=== PATIENT | male | born 1995 | race Caucasian/White ===

== ENCOUNTER 2017-01-29 18:01 | Emergency (ER) | payer OTHER ==
[2017-01-29 18:16] VITALS: BP 104/56
--- NOTE | 2017-01-29 18:22 | EDM.PDOC ---
ED HPI GENERAL MEDICAL PROBLEM - General Stated Complaint: LACERATION HEAD
--- NOTE | 2017-01-29 18:31 | EDM.PDOC ---
ED HPI Skin/Rash - General Chief Complaint: Laceration Stated Complaint: LACERATION HEAD Time Seen by Provider: 01/29/17 18:20 Source: Reports: Patient History Limitations: Reports: No limitations - History of Present Illness INITIAL COMMENTS - FREE TEXT/NARRATIVE: HISTORY AND PHYSICAL: History of present illness: [] 21-year-old male with no past medical history now presents emergency department with a scalp laceration. Patient was working stood up a board was over his head in his scalp. Laceration a small amount of bleeding tetanus not up -to-date no loss of consciousness patient was not days no headache or neck pain otherwise asymptomatic Review of systems: As per history of present illness and below otherwise all systems reviewed and negative. Past medical history: As per history of present illness and as reviewed below otherwise noncontributory. Surgical history: As per history of present illness and as reviewed below otherwise noncontributory. Social history: No reported history of drug or alcohol abuse. Family history: As per history of present illness and as reviewed below otherwise noncontributory. Physical exam: 2.7 cm apical scalp laceration frontoparietal area midline transverse orientation gross contamination no avulsion no bony tenderness or crepitus patient smiling and comfortable asymptomatic nontender C-spine with normal painless range of motion and fully nonfocal neurologic exam HEENT: Atraumatic, normocephalic, pupils reactive, negative for conjunctival pallor or scleral icterus, mucous membranes moist, throat clear, neck supple, nontender, trachea midline. Lungs: Clear to auscultation, breath sounds equal bilaterally, chest nontender. Heart: S1S2, regular, negative for clicks, rubs, or JVD. Abdomen: Soft, nondistended, nontender. Negative for masses or hepatosplenomegaly. Negative for costovertebral tenderness. Pelvis: Stable nontender. Genitourinary: Deferred. Rectal: Deferred. Extremities: Atraumatic, negative for cords or calf pain. Neurovascular unremarkable. Neuro: Awake, alert, oriented. Cranial nerves II through XII unremarkable. Cerebellum unremarkable. Motor and sensory unremarkable throughout. Exam nonfocal. Diagnostics: [] Therapeutics: [Procedure: Repair of apical scalp laceration by LAZARUS Dumont Patient sitting comfortably. He did not feel he needed local anesthetic for irrigation or repair. Wound was irrigated extensively with high-pressure jet sterile water. No gross contamination the wound. It is recently approximated and 3 interrupted mariel were placed by LAZARUS Dumont Patient tolerated well no complications.] Impression: [] Plan: [Simple scalp laceration irrigated staple repair patient tolerated well tetanus updated of further workup or treatment indicated. Patient will followup with PCP for wound check and return immediately for signs of infection or other complaint. He agrees with outpatient followup and strict return precautions given] Definitive disposition and diagnosis as appropriate pending reevaluation and review of above. - Related Data Allergies Allergy/AdvReac Type Severity Reaction Status Date / Time No Known Allergies Allergy Verified 01/29/17 18:16 Home Meds: Ambulatory Orders Medication Instructions Recorded Confirmed . [No Known Home Meds] 01/29/17 01/29/17 Past Medical History - Past Health History Medical/Surgical History: Denies Medical/Surgical History Social & Family History - Family History Family Medical History: Noncontributory - Tobacco Use Smoking Status *Q: Current Every Day Smoker Years of Tobacco use: 3 Packs/Tins Daily: 1 - Recreational Drug Use Recreational Drug Use: Yes Drug Use in Last 12 Months: Yes Recreational Drug Type: Reports: Marijuana/Hashish Recreational Drug Use Frequency: Socially ED ROS GENERAL - Review of Systems Review Of Systems: See Below (Per history of present illness) ED EXAM, SKIN/RASH Exam: See Below (History of present illness) Course - Vital Signs Last Recorded V/S: Last Vital Signs Temp 36.9 C 01/29/17 18:14 Pulse 73 01/29/17 18:14 Resp 16 01/29/17 18:14 BP 104/56 L 01/29/17 18:14 Pulse Ox 98 01/29/17 18:14 Departure - Departure Time of Disposition: 18:27 Disposition: Home, Self-Care 01 Condition: good Clinical Impression: Scalp laceration, Tetanus-diphtheria vaccination administered at current visit Instructions: Laceration Care, Adult, [id number] Referrals: PCP,None [Primary Care Provider] - Forms: ED Department Discharge Additional Instructions: Your scalp laceration has been repaired with mariel. Followup with your DrRuthy in 2 days for wound check and return here in 10 days for staple removal. You will not be charged for another visit as the staple removal is considered an extension of your care today. Take Motrin and Tylenol as needed for pain. It's okay to get your wound wet briefly while showering but do not soak or swim until it healed and mariel removed. Take care not to scrub pink or disrupture healing wound. Return immediately for signs of evolving infection which would be worsening redness increasing tenderness discharge of pus.
== END 2017-01-29 18:38 | disposition home or self-care (01) ==
LOC: MW.ED 18:01
DX: S01.01XA Laceration without foreign body of scalp, initial encounter (principal); F17.210 Nicotine dependence, cigarettes, uncomplicated; Z23 Encounter for immunization; W22.8XXA Striking against or struck by other objects, initial encounter; Y92.69 Other specified industrial and construction area as the place of occurrence of the external cause; Y99.0 Civilian activity done for income or pay
CPT/HCPCS: 12002; 99282